=== PATIENT | male | born 1990 | race Caucasian/White ===

== ENCOUNTER 2016-06-23 14:24 | Inpatient (IN) | payer OTHER, MEDICAID ==
[2016-06-23] MEDS ORDERED: NS 2,400 ML IV ONE (14:38)
--- NOTE | 2016-06-23 15:07 | EDPHY ---
HPI/HX/ROS/PE/MDM Narrative: CHIEF COMPLAINT: Cough, shortness of breath. HISTORY OF PRESENT ILLNESS: The patient is a 26-year-old male with a developmental delay who presents with cough, shortness of breath, and wheezing. His mother reports that he began coughing yesterday but this morning became more short of breath and was breathing very quickly. They measured his oxygen low on his grandmother's oxygen saturation machine. She admits associated low grade fever and possible vomiting. No chills, chest pain, urinary complaints, headache, lightheadedness. History is limited due to the patient's clinical baseline condition. REVIEW OF SYSTEMS: Unobtainable due to patient's clinical condition. PAST MEDICAL HISTORY: Developmental delay, eye surgeries. SOCIAL HISTORY: Here with mother. VITAL SIGNS: Reviewed by me GENERAL: Well-developed, well-nourished. Nonverbal. HEENT: Atraumatic. Eyes: No icterus, no injection. Disconjugate gaze. Mouth: Dry lips, unable to examine the oral mucosa. Neck: supple with no adenopathy. LUNGS: No wheezes or rales. Occasionally inspiratory stridor is noises heard. Coarse breath sounds and questionable rhonchi in right base. Visibly tachypneic. CARDIAC: Regular rhythm, no rubs, murmurs or gallops. Tachycardic. ABDOMEN: Soft, nontender, nondistended, bowel sounds normal. BACK: No CVA tenderness. EXTREMITIES: No trauma. No edema. Range of motion is normal throughout. NEURO: Alert, moving all extremities x4. Able to be reassured by his parents. Continually grabbing at me, my stethoscope, and my arms. SKIN: Warm and dry, no rash. Portions of this note were transcribed by a medical technologist microbiology. I personally performed a history, physical exam, medical decision making, and confirmed accuracy of information the transcribed note. ED Course: 26-year-old male with a history of developmental delay who is non-verbal at baseline presenting with cough and rapid breathing since yesterday. Today he was quite wheezy per his mother and his oxygen saturation was measured "low" on his grandmother's saturation machine. On presentation today he is 86% on room air. His mother reports a low-grade fever and possible vomiting but he is afebrile in the ED. We will check blood work and obtain a chest x-ray. I feel that sepsis is a risk in this patient due to his developmental delay, tachypnea , tachycardia, and low oxygen saturation. 1mg IV Ativan administered. 1534: Severe sepsis declared. The patient presents to the ED with presumed pulmonary infection. The patient did have evidence of end-organ dysfunction and met criteria for severe sepsis. This condition was identified by myself at 1534. The patients vital signs are HR 103, oxygen saturation 87% on room air, blood pressure 141/85, temperature 36.9. The patient has an arterial lactic acid performed within 3 hours of the identification of severe sepsis which was found to be 2.2. The patient has blood cultures drawn and received ertapenem, per the severe sepsis treatment protocol. The patient was placed on oxygen at this time. White blood count is normal. I viewed the chest x-ray on the portable machine. My interpretation: no definite pneumonia. Please see Imaging section for radiologist report. 1642: Consulted with Dr. Camara, hospitalist. He accepts admission. Repeat lactic acid 1.2. Influenza test pending at the time of admission. D-dimer pending at the time of admission. The differential diagnosis for this patient included but was not limited to pneumonia, bronchitis, viral syndrome, meningitis, and sepsis. - Data Points Imaging Results: Imaging Impressions Chest X-Ray 06/23/16 14:38 Impression: Hypoventilatory features without convincing evidence of a focal infiltrate. When clinically feasible, PA and lateral upright views in the department would be helpful for improved anatomic detail. Laboratory Results: Laboratory Results 06/23/16 15:15 06/23/16 15:15 06/23/16 06/23/16 06/23/16 17:00 15:15 15:15 WBC RBC Hgb Hct MCV MCH MCHC RDW Plt Count MPV Neut % (Auto) Lymph % (Auto) [place] % (Auto) Eos % (Auto) Baso % (Auto) Nucleat RBC Rel Count Absolute Neuts (auto) Absolute Lymphs (auto) Absolute Monos (auto) Absolute Eos (auto) Absolute Basos (auto) Absolute Nucleated RBC Immature Gran % Immature Gran # PT 13.9 SEC SEC (12.0-15.0) INR 1.08 (0.83-1.16) APTT 30.5 SEC SEC (23.0-38.0) VBG Lactic Acid 1.2 mmol/L mmol/L (0.7-2.1) Sodium 141 mEq/L mEq/L (134-144) Potassium 4.2 mEq/L mEq/L (3.5-5.2) Chloride 101 mEq/L mEq/L (97-110) Carbon Dioxide 26 mEq/l mEq/l (22-31) Anion Gap 14 mEq/L mEq/L (8-16) BUN 21 mg/dL mg/dL (7-23) Creatinine 1.1 mg/dL mg/dL (0.7-1.3) Estimated GFR > 60 Glucose 97 mg/dL mg/dL (70-100) Calcium 9.9 mg/dL mg/dL (8.5-10.4) Total Bilirubin 1.6 mg/dL H mg/dL (0.1-1.4) 06/23/16 06/23/16 15:15 15:15 WBC 5.70 10^3/uL 10^3/uL (3.80-9.50) RBC 5.11 10^6/uL 10^6/uL (4.40-6.38) Hgb 16.5 g/dL g/dL (13.7-17.5) Hct 47.0 % % (40.0-51.0) MCV 92.0 fL fL (81.5-99.8) MCH 32.3 pg pg (27.9-34.1) MCHC 35.1 g/dL g/dL (32.4-36.7) RDW 12.6 % % (11.5-15.2) Plt Count 108 10^3/uL L 10^3/uL (150-400) MPV 10.4 fL fL (8.7-11.7) Neut % (Auto) 77.6 % H % (39.3-74.2) Lymph % (Auto) 10.9 % L % (15.0-45.0) [place] % (Auto) 10.5 % % (4.5-13.0) Eos % (Auto) 0.4 % L % (0.6-7.6) Baso % (Auto) 0.4 % % (0.3-1.7) Nucleat RBC Rel Count 0.0 % % (0.0-0.2) Absolute Neuts (auto) 4.43 10^3/uL 10^3/uL (1.70-6.50) Absolute Lymphs (auto) 0.62 10^3/uL L 10^3/uL (1.00-3.00) Absolute Monos (auto) 0.60 10^3/uL 10^3/uL (0.30-0.80) Absolute Eos (auto) 0.02 10^3/uL L 10^3/uL (0.03-0.40) Absolute Basos (auto) 0.02 10^3/uL 10^3/uL (0.02-0.10) Absolute Nucleated RBC 0.00 10^3/uL 10^3/uL (0-0.01) Immature Gran % 0.2 % % (0.0-1.1) Immature Gran # 0.01 10^3/uL 10^3/uL (0.00-0.10) PT INR APTT VBG Lactic Acid 2.2 mmol/L H mmol/L (0.7-2.1) Sodium Potassium Chloride Carbon Dioxide Anion Gap BUN Creatinine Estimated GFR Glucose Calcium Total Bilirubin Medications Given: Discontinued Medications Sodium Chloride (Ns) 1,000 mls @ 0 mls/hr IV ONCE ONE PRN Reason: Wide Open Stop: 06/23/16 15:09 Last Admin: 06/23/16 15:23 Dose: 1,000 mls Lorazepam (Ativan Injection) 1 mg IVP EDNOW ONE Stop: 06/23/16 15:09 Last Admin: 06/23/16 15:23 Dose: 1 mg General Time Seen by Provider: 06/23/16 14:37 Initial Vital Signs: Initial Vital Signs Temperature (C) 36.9 C 06/23/16 14:27 Heart Rate 107 H 06/23/16 14:27 Respiratory Rate 18 06/23/16 14:27 Blood Pressure 141/85 H 06/23/16 14:27 O2 Sat (%) 86 L 06/23/16 14:27 O2 Delivery Mode Room Air O2 (L/minute) 2 Allergies/Adverse Reactions: Sulfa (Sulfonamide Antibiotics) Allergy (Intermediate, Verified 06/23/16 14:31) Rash Home Medications: Medication Instructions Recorded NK [No Known Home Meds] 06/23/16 Departure - Departure Disposition: [facility] Clinical Impression: Cough, Hypoxia, Tachypnea Sepsis Qualifiers: Sepsis type: sepsis due to unspecified organism Qualified Code(s): A41.9 - Sepsis, unspecified organism Condition: Fair Report Scribed for: Malu Vila Report Scribed by: Mark Luevano Date of Report: 06/23/16 Time of Report: 15:04
[2016-06-23] MEDS ORDERED: LORazepam 2 MG/ML INJ IVP ONE (15:08)
[2016-06-23] MEDS ORDERED: NS 1,000 ML IV ONE (15:08)
[2016-06-23 15:42] LABS: % IMMATURE GRANULYOCYTES 0.2 % (0.0-1.1); ABSOLUTE IMMATURE GRANULOCYTES 0.01 10^3/uL (0.00-0.10); ADD DIFF? NO; ADD MORPH? NO; ADD SCAN? NO; ATYPICAL LYMPHOCYTE FLAG 0 (0-99); FRAGMENT RBC FLAG 0 (0-99); HEMOGLOBIN 16.5 g/dL (13.7-17.5); LEFT SHIFT FLG 0 (0-99); LIPEMIA HEMOLYSIS FLAG 90 (0-99); MEAN CELL HEMOGLOBIN 32.3 pg (27.9-34.1); MEAN CELL HEMOGLOBIN CONCENTR. 35.1 g/dL (32.4-36.7); MEAN PLATELET VOLUME 10.4 fL (8.7-11.7); PLATELET CLUMPS FLAG 0 (0-99); PLATELET COUNT 108 10^3/uL (150-400); RED BLOOD CELL COUNT 5.11 10^6/uL (4.40-6.38); RED CELL DISTRIBUTION WIDTH 12.6 % (11.5-15.2)
[2016-06-23 15:55] LABS: INR 1.08 (0.83-1.16); PROTIME(PATIENT) 13.9 SEC (12.0-15.0)
[2016-06-23 15:56] LABS: APTT 30.5 SEC (23.0-38.0)
[2016-06-23 16:02] LABS: ANION GAP 14 mEq/L (8-16); BILIRUBIN,TOTAL 1.6 mg/dL (0.1-1.4); CALCIUM 9.9 mg/dL (8.5-10.4); CARBON DIOXIDE 26 mEq/l (22-31); CHLORIDE 101 mEq/L (97-110); CREATININE 1.1 mg/dL (0.7-1.3); GLOMERULAR FILTRATION RATE > 60; GLUCOSE 97 mg/dL (70-100); POTASSIUM 4.2 mEq/L (3.5-5.2); SODIUM 141 mEq/L (134-144)
[2016-06-23 16:25] LABS: LACGHOST ORDER
[2016-06-23] MEDS ORDERED: ONDANSETRON 4 MG/2 ML VIAL IVP PRN (18:41)
[2016-06-23] MEDS ORDERED: ACETAMINOPHEN 325 MG TAB PO PRN (18:41)
[2016-06-23] MEDS ORDERED: ALBUTEROL 3 ML DEYVIAL IH PRN (18:41)
[2016-06-23] MEDS ORDERED: NS 1,000 ML IV SCH (18:45)
--- NOTE | 2016-06-23 19:19 | PDGENHP ---
History and Physical History and Physical: HISTORY AND PHYSICAL CC: Cough and rapid respirations HISTORY: This patient with congenital developmental delay syndrome is brought in by his parents because of cough and rapid respirations. The patient is nonverbal and noncommunicative in the really has no other history in terms of specific symptoms. The parents have not noticed any particular abnormalities otherwise. They say he has been eating and up walking around both seems to have a bit less energy than usual. They have not checked his temperature. His skin has not seems way or clammy to them. He does not have any change in his usual neurologic function that they can see and has not had nausea or vomiting. There apparently is a relative who has a cold or flu type syndrome of some type. The patient himself does not have any preceding pulmonary syndrome such as asthma or chronic lung disease of any kind does not use any lung inhalers or medications. ROS: A comprehensive 10 system review is attempted, and very limited, but revealed no other significant findings PAST MEDICAL HISTORY: Congenital developmental delay thought to be due to some type of related injury He is otherwise quite healthy as far as the parents now. He takes no medications and has not really had any hospitalizations. His only surgery was for an attempted correction of diplopia FAMILY MEDICAL HISTORY: Relatives are very healthy SOCIAL HISTORY: The patient lives at home with his parents who are caretakers for him. His father tells me that he does ambulate but that he does not dress himself, does not communicate significantly so there is a lot of gas work for the parents about what's going on what to do. The patient will eat food if given to him in a bowl cut up in small of parts to eat with a spoon. Apparently the patient does much better with female caregivers and medical staff compared to males and he is often somewhat even aggressive with male medical staff. To wit the patient does seem mildly aggravated by my presence. MEDICATIONS: Per the father he takes no medicines at home PHYSICAL EXAMINATION: Vital Signs: Tachypneic and tachycardic, initially with normal temperature although he had a 39.0 degree temperature upon arriving at his [facility] floor. Blood pressure is stable Shipping Clerk Packing: Sinus rhythm Examination: General: alert, does seem to be quite aware of my presence when I am approaching or examining him, but makes no effort to communicate otherwise. Continually reaches out to grab my hand and arm and my stethoscope apply try to examine him and has to be restrained by his father. Skin: warm, dry, good color, no rash HEENT: Very difficult to examine overall but I cannot see anything abnormal Neck: There is a very mild stridor type noise on inspiration; no palpable abnormality of the neck and no mass or jvd Resps: Rapid Lungs: clear breath sounds over the lungs Heart: regular, no murmur Abdomen: soft, nondistended, +BS, no mass Upper Extremities: normal Lower Extremities: no edema, warm No Bleeding or bruising Neurologic: Very difficult exam, no obvious weakness anywhere no tremor but clearly very limited in terms of communication and does not at all seem to be able to comprehend anything I set him will respond to it in any way IV site: looks normal LABORATORY DATA: Unremarkable CBC, platelets slightly low, unremarkable metabolic panel Serum lactate initially 2.2 but resolved to normal with some fluids in the ER RADIOLOGY STUDIES: Chest x-ray, my personal review of the film with my interpretation: with no obvious infiltrate or other abnormality, single-view study ASSESSMENT: -acute febrile illness with signs of mild sepsis and symptoms suggesting likely respiratory source -small stridor on examination raising question of pharyngeal site of infection -acute respiratory failure with tachypnea tachycardia hypoxemia and cough -developmental delay making history taking very difficult, and caring for him here will create some challenges PLANS: -blood cultures have been obtained in the ER -I will start antibiotics at this time, will choose at this time ertapenem with consideration for possible pharyngeal infection and possible aspiration as site or source of infection -continue hydration -flu test is pending -ENT consult -will try to arrange for nursing staff and medical staff to be female when possible I have reviewed the patient's case in detail with Dr. Malu Vila
[2016-06-23] MEDS: ACETAMINOPHEN 650 MG/20.3 ML UDCUP PO PRN (19:26)
[2016-06-23] MEDS: ERTAPENEM 1 GM in NS 100 ML IV SCH (20:46)
[2016-06-24] MEDS: ACETAMINOPHEN 650 MG/20.3 ML UDCUP PO PRN (00:29)
[2016-06-24] MEDS: methylPREDNISolone SOD SUCC 40 MG/ML VIAL IVP SCH ×4 (04:37→23:54)
[2016-06-24 05:09] LABS: ADD SCAN? RJE
[2016-06-24 05:24] LABS: ANION GAP 11 mEq/L (8-16); CALCIUM 8.2 mg/dL (8.5-10.4); CARBON DIOXIDE 21 mEq/l (22-31); CHLORIDE 109 mEq/L (97-110); GLOMERULAR FILTRATION RATE > 60; GLUCOSE 82 mg/dL (70-100); POTASSIUM 3.7 mEq/L (3.5-5.2); SODIUM 141 mEq/L (134-144)
[2016-06-24] MEDS: ERTAPENEM 1 GM in NS 100 ML IV SCH (09:56)
--- NOTE | 2016-06-24 09:56 | HOSPPROG ---
Hospitalist Progress Note Assessment/Plan: The patient has congenital developmental delay syndrome. He was brought in by his parents because of cough and rapid respirations. The patient is nonverbal and noncommunicative. The parents have not noticed any particular abnormalities otherwise. They say he has been eating and up walking around both seems to have a bit less energy than usual. They have not checked his temperature. Today is my first encounter with the patient, chart reviewed. *Fevers -negative for the flu -blood cx pending -continue to by tachypnea during my evaluation -d dimer is negative -previous MD called ENT -has ongoing fevers -patient will not allow me to look at his throat/continues to have some stridor as noted by previous provider -on Ertapenem + azithro (started on 06/23) -on iv steroids *Acute hypoxemic respiratory failure -likely r/t a resp infection? -no infiltrate noted on the chest xray *Developmentally delayed patient is non verbal prefers female nursing staff *sepsis lactate improved w hydration PLANS: -ENT to see -may need to sedate the patient so that an evaluation can be done -I spoke with the patient's mother who is fine with this -decrease iv fluids -unclear of etiology of his fevers, spoke with Dr Valerio who will see him Subjective: Patient is non verbal. Objective: Vital Signs Temp Pulse Resp BP Pulse Ox 36.8 C 74 14 106/60 98 06/24/16 08:58 06/24/16 08:58 06/24/16 08:58 06/24/16 08:58 06/24/16 08:58 Laboratory Results 06/24/16 04:45 06/24/16 04:45 06/23/16 06/24/16 06/25/16 05:59 05:59 05:59 Intake Total 2333 Balance 2333 PT 13.9 SEC (12.0-15.0) 06/23/16 15:15 INR 1.08 (0.83-1.16) 06/23/16 15:15 - Physical Exam Constitutional: uncomfortable Eyes: PERRL Ears, Nose, Mouth, Throat: hearing normal Cardiovascular: regular rate and rhythym, tachycardia Respiratory: other (increase stridor with breathing), No no respiratory distress (slight increase rate) Gastrointestinal: normoactive bowel sounds Skin: warm, normal color Musculoskeletal: other (moves all extremities) Neurologic: other (alert, but non verbal) Psychiatric: other (gets scared with evaluation of heart and lung sounds) ICD10 Worksheet Patient Problems: Problems Problem Status Onset Cough Acute Hypoxia Acute Sepsis Acute Tachypnea Acute
[2016-06-24 10:02] LABS: % IMMATURE GRANULYOCYTES 0.3 % (0.0-1.1); ABSOLUTE IMMATURE GRANULOCYTES 0.01 10^3/uL (0.00-0.10); ADD DIFF? NO; ADD MORPH? NO; ADD SCAN? NO; ATYPICAL LYMPHOCYTE FLAG 20 (0-99); FRAGMENT RBC FLAG 0 (0-99); HEMATOCRIT 42.2 % (40.0-51.0); HEMOGLOBIN 14.6 g/dL (13.7-17.5); LEFT SHIFT FLG 0 (0-99); LIPEMIA HEMOLYSIS FLAG 90 (0-99); MEAN CELL HEMOGLOBIN 32.9 pg (27.9-34.1); MEAN CELL HEMOGLOBIN CONCENTR. 34.6 g/dL (32.4-36.7); MEAN PLATELET VOLUME 10.7 fL (8.7-11.7); PLATELET CLUMPS FLAG 0 (0-99); PLATELET COUNT 97 10^3/uL (150-400); RED BLOOD CELL COUNT 4.44 10^6/uL (4.40-6.38); RED CELL DISTRIBUTION WIDTH 12.6 % (11.5-15.2)
--- NOTE | 2016-06-24 10:05 | HOSPPROG ---
Hospitalist Progress Note Assessment/Plan: The patient has congenital developmental delay syndrome. He was brought in by his parents because of cough and rapid respirations. The patient is nonverbal and noncommunicative. He has no other history in terms of specific symptoms. The parents have not noticed any particular abnormalities otherwise. They say he has been eating and up walking around both seems to have a bit less energy than usual. Today is my first encounter with the patient, chart reviewed. *fevers with increase respiratory rate questionable pharyngeal infection ENT called by admitting MD neg for flu d dimer negative blood cx pending stridors *acute respiratory failure chest xray shows nothing acute +tahcypnea and tachycardia *sepsis repeat lactate showed improvement *developmentally delayed patient does best with female staff Objective: Vital Signs Temp Pulse Resp BP Pulse Ox 36.8 C 74 14 106/60 98 06/24/16 08:58 06/24/16 08:58 06/24/16 08:58 06/24/16 08:58 06/24/16 08:58 Laboratory Results 06/24/16 04:45 06/23/16 06/24/16 06/25/16 05:59 05:59 05:59 Intake Total 2333 Balance 2333 PT 13.9 SEC (12.0-15.0) 06/23/16 15:15 INR 1.08 (0.83-1.16) 06/23/16 15:15 ICD10 Worksheet Patient Problems: Problems Problem Status Onset Cough Acute Hypoxia Acute Sepsis Acute Tachypnea Acute
[2016-06-24] MEDS: AZITHROMYCIN IV 500 MG in D5W 250 ML IV SCH (12:23)
--- NOTE | 2016-06-24 12:38 | GCON ---
[f rep st] CONSULTATION INFECTIOUS DISEASE CONSULTATION. DATE OF CONSULTATION: 06/24/2016 REFERRING PHYSICIAN: Lucy Nascimento NP REASON FOR CONSULTATION: Fever. CHIEF COMPLAINT: Fevers and cough. HISTORY OF PRESENTING ILLNESS: This is a 26-year-old, male with a past medical history si gnificant for congenital developmental delay who is nonverbal and is brought in by his parents. His tory is obtained purely from the medical records, and the mother at the bedside as patient is nonver bal. According to the mother, patient was in his normal, typical, usual health and doing well, unti l 2 days ago when he started to have a cough. She did not notice any prior or recent episodes of ch oking on any food or difficulty with swallowing whether it be food or liquids. She cuts up food, pu ts it in a bowl and she states that the patient is able to eat on his own, and drink liquids. She noticed him having a cough developing on Thursday, and was eating relatively normally at that time , but yesterday he was really pushing away food not wanting to eat food or keeping it in his mouth, and then he started to have fevers yesterday as well. She states that he does not have any typical nonverbal cues to indicate if his issues are one way or the other. According to the mother, he has not been pointing to his throat or his neck. He has just been having a cough. His O2 saturations o n initial evaluation were down to 86 initially and did drop down to 83 at some point last night. He was already up to 4 L of O2 via nasal cannula early this morning and now is back down to 2 L. He h as had spiking temperatures since he has come in with the highest being 39.7. He was started empiri yong on Invanz therapy. Yesterday had a chest x-ray done which was a limited study due to position ing and it was a study. It basically showed hypoventilatory features without any obvious infiltrate. His white count yesterday was within normal range, however, did have a left shift, and today his white blood cell count has dropped down to 3.6, with ongoing thrombocytopenia and a left shift. When asked if the patient does leave the home at all, she states he does go to a center 3 da ys a week that are about 6 hours long each day. He is amongst other people there along with staff edson lambert. She is not aware of any acute illnesses among the staff members or the other patrons who ma y be at the facility during that time. He does tend to touch surfaces a lot and touches nose and mo uth. He denies having issues with recurrent throat infections or pneumonias in the past, and again no witnessed choking of food or difficulty swallowing food or liquids. She does state that her moth er actually is ill with a respiratory infection, currently hospitalized at [facility]. Appar ently she was around the patient last week. At that time, she states that nobody had shown signs of illness, either her or her son. She reports no obvious rashes on the patient. No obvious sores or bedsores. Infectious Disease is now consulted for further evaluation and opinion regarding above. REVIEW OF SYSTEMS: Could not be obtained as patient is nonverbal. PAST MEDICAL HISTORY: Significant for congenital developmental delay of uncertain etiology and stra bismus. PAST SURGICAL HISTORY: Significant for eye surgery to correct strabismus. ALLERGIES: Include sulfa which she states that he had a rash but no obvious swelling or shortness o f breath at the time. She states that was several years ago and she is not quite clear why he was teresa Scott. SOCIAL HISTORY: Lives with his parents who are his caretakers. He goes to a center 3 days a week. Apparently patient is very anxious around males. FAMILY HISTORY: Diabetes and heart disease in the family. PHYSICAL EXAMINATION: VITAL SIGNS: Temperature current 36.8, pulse is 74, respiratory rate is 14, blood pressure is 106/60, saturation of 98% on 2 L O2 via an OxyMask. GENERAL: Patient is sitting up in bed, with intermittent coughing. Does not appear obviously tachypneic at present. HEENT: He ad is normocephalic, atraumatic. Eyes without conjunctival injection noted. Oropharynx could not b e visualized as patient is unable to follow commands and open his mouth. NECK: On palpation of the neck, I do appreciate this is also limited exam. There is lymphadenopathy, particularly on the rig ht submandibular region. No obvious pain on palpation in the neck into the tonsillar region. CARDI OVASCULAR: S1, S2. Regular rate and rhythm. No obvious murmurs. RESPIRATORY: Limited exam. Poo r inspiratory effort. No obvious rhonchi. ABDOMEN: Positive bowel sounds in all quadrants. Soft, nontender, nondistended. EXTREMITIES: No obvious lower extremity edema. MUSCULOSKELETAL: No obv ious joint effusions. SKIN: Unable to do thorough exam but no obvious rashes on exposed skin. LABORATORY DATA: White blood cell count is 3.6, hemoglobin 14.6, platelet platelets are 97, hematoc rit 42, neutrophil count 84, INR 1.0. D-dimer less than 0.27. Lactic acid 2.2 down to 1.2. Sodium 141, potassium 3.7, chloride 109, bicarb 21, BUN is 18, creatin ine is at 1.0. Urinalysis is pending. Influenza A and B PCR is negative. Blood cultures, 3 sets, are pending. X-ray reviewed and is as stated above. ASSESSMENT: Fevers associated with leukopenia and thrombocytopenia. PLAN: Differential diagnosis could be related to viral etiology such as other respiratory viruses, EBV, CMV versus bacterial process related to pharyngeal infection or possible pneumonia. Exam is li mited. Chest x-ray, also only 1 view is still limited study as well. Will order respiratory viral PCR to be done. Will also check urine for Legionella urinary antigen and urinary streptococcal pneu monia antigen. Will also order EBV and CMV studies as well. Check repeat CBC and CMP in a.m. to fu rther follow trend. Agree with ENT eval, although may be limited as patient will be difficult to ex amine. If able, CT of the neck and chest may be helpful. Invanz has been started for empiric antib iotics for possible pharyngeal or aspiration pneumonia which seems reasonable at this time. May con dye colorist dyer the addition of azithromycin for atypical coverage. Plan of care was discussed at length with the mother. Care coordinating with the hospitalist team. Thank you very much for the opportunity to care for your patient in consultation. /[id number]/MODL
[2016-06-24] MEDS ORDERED: LORazepam 2 MG/ML INJ IVP ONE ×2 (15:45→21:00)
--- NOTE | 2016-06-24 18:49 | GCON ---
[f rep st] CONSULTATION HISTORY OF PRESENT ILLNESS: This is a 26-year-old male with past medical history significant for co ngenital developmental delay, who is nonverbal and is brought in by his parents. History is obtaine d purely from medical records as well as Mother at the bedside. Patient's mother states that 2-3 da ys ago, he started to note having a cough. He then started wanting to avoid eating. He has not bee n pointing to his throat or neck. Patient was presented to the emergency room on 06/23/2016 and was admitted to the hospitalists. Patient had chest x-ray done yesterday which was a limited study due to the positioning. This patient has had no obvious sick contacts. On initial evaluation, patient was possibly noted to have some stridor. Oropharyngeal exam was quite difficult, and ENT is consul cris for evaluation. On further questioning, the patient's mother notes possible improvement over the past day; he has be en on antibiotics as well as steroids. There has been no further significant respiratory distress. PHYSICAL EXAMINATION: GENERAL: Patient is sitting up in bed. He is not tachypneic. There is no a udible stridor. HEENT: Head normocephalic. Oropharyngeal exam was severely limited as patient is unable to open his mouth on command. At times, the posterior soft palate was visualized and found t o be normal. Tongue was normal and mobile. NECK: There is no lymphadenopathy noted on my examinat ion, though exam limited. DISCUSSION AND DECISION-MAKING: This is a 26-year-old male, admitted with fevers as well as leukope jun. Limited oropharyngeal exam is normal today without signs of significant edema. There is no au dible stridor on our exam today. Elected to defer a laryngoscopic exam as patient would be unable t o tolerate. Neck exam is normal and without significant lymphadenopathy. The patient was seen and evaluated by me as well as Dr. Martinez. Plan below was developed by Dr. Tucker lauren and me. 1. Recommend continued antibiotics. 2. At this point, can start tapering steroids over the next 2-3 days. 3. If further evaluation is necessary, we would recommend CT neck with contrast. Likely, the only way to perform laryngoscopic exam would be a sedated exam, though would not recommend it this time, given symptomatic improvement per the patient's mother. 4. We did discuss differential diagnosis with the patient's mom, including viral etiology. Though oropharyngeal exam is limited, there was no obvious signs of significant tonsillitis, pharyngitis, o ther oropharyngeal infections. 5. At this point, ENT will follow peripherally. Please re-consult our service if there is further need for evaluation, such as laryngoscopic exam. Please notify ENT if CT scan is performed and any abnormalities are found. Thank you so much for allowing us participate in the care of this patient. If there are further que stions, please do not hesitate to contact our office. /[id number]/MODL
[2016-06-24] MEDS ORDERED: LORazepam 2 MG/ML INJ ONE (23:48)
[2016-06-25 02:37] LABS: COLOR YELLOW; LEUKOCYTE ESTERASE,URINE NEGATIVE (NEGATIVE); NITRITE,URINE NEGATIVE (NEGATIVE)
[2016-06-25] MEDS: methylPREDNISolone SOD SUCC 40 MG/ML VIAL IVP SCH ×2 (05:22→12:13)
[2016-06-25 08:26] LABS: % IMMATURE GRANULYOCYTES 0.2 % (0.0-1.1); ABSOLUTE IMMATURE GRANULOCYTES 0.01 10^3/uL (0.00-0.10); ADD DIFF? NO; ADD MORPH? NO; ADD SCAN? NO; ATYPICAL LYMPHOCYTE FLAG 0 (0-99); FRAGMENT RBC FLAG 0 (0-99); HEMOGLOBIN 15.9 g/dL (13.7-17.5); LEFT SHIFT FLG 0 (0-99); LIPEMIA HEMOLYSIS FLAG 90 (0-99); MEAN CELL HEMOGLOBIN 32.6 pg (27.9-34.1); MEAN CELL HEMOGLOBIN CONCENTR. 34.6 g/dL (32.4-36.7); MEAN CELL VOLUME 94.3 fL (81.5-99.8); MEAN PLATELET VOLUME 10.1 fL (8.7-11.7); PLATELET CLUMPS FLAG 10 (0-99); PLATELET COUNT 118 10^3/uL (150-400); RED BLOOD CELL COUNT 4.88 10^6/uL (4.40-6.38); RED CELL DISTRIBUTION WIDTH 12.3 % (11.5-15.2)
[2016-06-25 09:09] VITALS: RESP 14
[2016-06-25 09:44] LABS: ALANINE AMINOTRANSFERASE 27 IU/L (21-72); ALBUMIN 4.2 g/dL (3.5-5.0); ALKALINE PHOSPHATASE 56 IU/L (38-126); ANION GAP 11 mEq/L (8-16); ASPARTATE AMINOTRANSFERASE 24 IU/L (17-59); CALCIUM 9.6 mg/dL (8.5-10.4); CARBON DIOXIDE 25 mEq/l (22-31); CHLORIDE 105 mEq/L (97-110); CREATININE 0.9 mg/dL (0.7-1.3); GLOMERULAR FILTRATION RATE > 60; GLUCOSE 146 mg/dL (70-100); POTASSIUM 4.4 mEq/L (3.5-5.2); SODIUM 141 mEq/L (134-144)
[2016-06-25] MEDS: ERTAPENEM 1 GM in NS 100 ML IV SCH (10:08)
[2016-06-25] MEDS: AZITHROMYCIN IV 500 MG in D5W 250 ML IV SCH (10:57)
[2016-06-25 12:08] VITALS: BP 129/66; PULSE 99; TEMP 98.3
--- NOTE | 2016-06-25 14:41 | PCMIDPN ---
Assessment/Plan: Assessment/Plan: 1. Fevers with possible pneumonia: - Etiology of fevers not clear, viral vs bacterial. -Early CXR without evidence of pneumonia but limited as was only single view and not great study -Wbc was low yesterday, now back into normal range. Lab results reviewed with mother - Multiple other studies pending: RVP, U. leg, U. strep, EBV,CMV -Currently on empiric invanz, azithromycin - Overall patient has clinically improved with resolution of fevers x 24 hours, not tachypneic, eating again, wbc normalization etc. -Mother would like to take patient home today if possible, and stable. - Recommend transitioning to oral antibiotics to complete as an OP with moxifloxacin 400mg daily x 5 days. Can be crushed per pharmacy. -d/c terry valdes. -f/u appt on 06/30/16 at 2:30pm. -care coordinated with hospitalist team, RN, pharmacy -plan of care reviewed with mother. medsTamanna stewart Subjective: Afebrile. breathing easy now. off o2. intermittent dry coughing. per mother he ate oatmeal and drank smoothie this morning. didn't eat much lunch so far. no BM 's since he has been here (baseline, he moves his bowels each day). Objective: Vital Signs Temp Pulse Resp BP Pulse Ox 36.8 C 99 14 129/66 H 91 L 06/25/16 12:07 06/25/16 12:07 06/25/16 12:07 06/25/16 12:07 06/25/16 12:07 Laboratory Results 06/25/16 08:20 06/25/16 08:20 06/24/16 06/25/16 06/26/16 05:59 05:59 05:59 Intake Total 2333 Output Total 200 Balance 2333 -200 - Physical Exam General Appearance: alert, no apparent distress EENT: other (limited exam. pt unable to follow commands to open mouth. was able to exam buccal mucosa and tongue briefly with no obvious ulcers, thrush, noted. Was not able to exam posterior pharynx. ) Respiratory: other (poor inspiratory effort. limited exam) Neck: other (non tender on palpation although he does push my hand away after sometime when palpating right submandibular region. no obvious neck swelling or induration. ) Cardiac/Chest: regular rate, rhythm Extremities: No swelling Abdomen: non-tender, soft, No distended Skin: No erythema - Time Spent With Patient Time Spent with Patient: greater than 35 minutes Time Spent with Patient: Greater than 35 minutes spent on this patients care, greater than 50% of time spent counseling, educating, and coordinating care regarding the above mentioned plan. ICD10 Worksheet Patient Problems: Problems Problem Status Onset Cough Acute Hypoxia Acute Sepsis Acute Tachypnea Acute
[2016-06-25 15:21] VITALS: O2SAT 90
--- NOTE | 2016-06-25 15:37 | GDS ---
[f rep st] DISCHARGE SUMMARY DISCHARGE DIAGNOSES: 1. Fever with possible pneumonia. 2. Developmentally delayed. 3. Acute hypoxemic respiratory failure. 4. Sepsis. CONSULTATIONS: 1. ENT. 2. Infectious Disease. PHYSICAL EXAM: GENERAL: The patient is alert. VITAL SIGNS: Afebrile at 36.8. Pulse is 99. Resp iratory rate is 14. Blood pressure is 129/66. He is saturating greater than 90% on room air. I elliott ve seen and evaluated the patient on the day of discharge. HOSPITAL COURSE: The patient is a 26-year-old male who is developmentally delayed and presented to the emergency room with his parents secondary to cough and rapid respirations. He was evaluated and diagnosed with: 1. Fever with possible pneumonia. During this hospitalization, the patient received a consultation from ENT as well as Infectious Disease. He has been started on antibiotic therapy. He is respondi ng and his condition is continuing to improve. He will be transitioned to moxifloxacin at the time of disposition for further antibiotic therapy. I have reviewed the patient's plan of care and disch arge with Dr. Valerio of Infectious Disease. She is in agreement with this plan. The patient's mother is comfortable with him being discharged as well. 2. Acute hypoxemic respiratory failure. This has resolved and the secondary to acute infectious pr ocess. 3. Developmentally delayed. The patient is at his baseline. 4. Sepsis. This has resolved. DISPOSITION: The patient will be discharged home with his family to his normal living environment. There are some pending studies that will be followed up outside the hospital by Dr. Valerio. Followup will be with Dr. Valerio on 06/30/2016, as well as the patient's primary care physician , Dr. Willow Ramos. DISCHARGE MEDICATIONS: The patient has been provided a prescription for moxifloxacin 400 mg daily f or 5 days. I spent greater than 35 minutes in the care, coordination, and management of the patient's dispositi on. /[id number]/MODL
[2016-06-25 17:30] LABS: RESPPCR RESULT SEE COMMENTS
[2016-06-26 08:23] LABS: ANTI EBNA Negative (Negative); ANTI VCA/IgG Negative (Negative); ANTI VCA/IgM Negative (Negative); INTERPRETATION See Comments
[2016-06-26 14:29] LABS: MYCOPLASMA PNUEMONIAE IGM 0.16 index (<=0.90)
== END 2016-06-25 17:04 | disposition home or self-care (01) | DRG 871 ==
LOC: OBSVTOIN 16:51 → F3E 18:23
PROVIDERS: ADMIT Internal Medicine; ATTEND Internal Medicine
DX: A41.9 Sepsis, unspecified organism (principal); J18.9 Pneumonia, unspecified organism; J96.01 Acute respiratory failure with hypoxia; R62.50 Unspecified lack of expected normal physiological development in childhood
CPT/HCPCS: 86644-90; 86645-90; 86664-90; 86665-90; 86738-90; 87449-90; 96374; J0456; J1335; J2060